=== PATIENT | female | born 1950 | race Caucasian/White ===

== ENCOUNTER 2018-10-21 11:52 | Outpatient (CLI) | payer MEDICARE, OTHER, SELFPAY ==
--- NOTE | 2018-10-21 11:58 | DI.RAD_ITS ---
SYMPTOM/DIAGNOSIS: COUGH, UPPER RESP INFECTION, J06.9 PA AND LATERAL CHEST: Comparison is made with 01/14/18. The heart is mildly enlarged, unchanged. There is a patchy infiltrate seen in the lingula. There are questionable right middle lobe densities. No effusions are seen. IMPRESSION: Question of lingular and right middle lobe infiltrates.
== END 2018-10-21 12:12 ==
PROVIDERS: Visit Provider Internal Medicine
DX: R05 Cough (principal); I51.7 Cardiomegaly; R91.8 Other nonspecific abnormal finding of lung field
CPT/HCPCS: 71046

== ENCOUNTER 2019-07-16 09:12 | Outpatient (CLI) | payer MEDICARE, SELFPAY ==
[2019-07-16 10:44] LABS: ALT 26 U/L (12-78); AST 11 U/L (15-37); Albumin 3.4 g/dL (3.4-5.0); Alkaline Phosphatase 113 U/L (46-116); Anion Gap 10.2 mmol/L (3-11); BUN 26 mg/dL (7-18); Bilirubin, Total 0.2 mg/dL (0.2-1.0); CO2 28.8 mmol/L (21.0-32.0); CREATININE 0.94 mg/dL (0.55-1.02); Calcium 8.7 mg/dL (8.5-10.1); Calculated LDL 154 mg/dL; Chloride 103 mmol/L (98-107); Cholesterol 215 mg/dL (50-200); Estimated GFR 59.22 (mL/min/1.73m2); Glucose 115 mg/dL (70-100); HDL Cholesterol 45 mg/dL (40-60); Potassium 4.5 mmol/L (3.5-5.1); Sodium 142 mmol/L (136-145); TSH (W/Ref FT4) 1.99 uIU/mL (0.36-3.74); Total Protein 6.9 g/dL (6.4-8.2); Triglyceride 84 mg/dL (30-150)
== END 2019-07-16 09:32 ==
DX: E66.01 Morbid (severe) obesity due to excess calories (principal); F41.9 Anxiety disorder, unspecified; I10 Essential (primary) hypertension; J45.909 Unspecified asthma, uncomplicated; M54.5 Low back pain; M79.605 Pain in left leg; R60.9 Edema, unspecified
CPT/HCPCS: 36415; 80053; 80061; 83721; 84443

== ENCOUNTER 2020-10-25 17:01 | Emergency (ER) | payer MEDICARE, BC, SELFPAY ==
[2020-10-25 17:07] VITALS: BP 185/87; PULSE 74; RESP 22; TEMP 37; O2SAT 94
--- NOTE | 2020-10-25 17:27 | ED.GENADUL_ITS ---
Discharge Plan Disposition Patient Disposition: HOME Condition: Fair Discharge Details Clinical Impression: Post-menopausal bleeding Primary Care Provider: Ailyn Will ED Provider: Delmy Robles Home Meds and New Rx's Prescriptions: No Action albuterol sulfate [ProAir HFA] 90 mcg/actuation HFA aerosol inhaler 2 puff Inhalation Q4H PRN PRN (Reason: shortness of breath or wheezing) Qty: 1 RF: 3 vitamin B complex [B Complex-Vitamin B12] tablet 1 tab PO DAILY RF: 0 Advair HFA 230-21 mcg/actuation HFA aerosol inhaler 2 puff Inhalation BID PRN (Reason: wheezing) Qty: 8 RF: 0 cephalexin 500 mg capsule 500 mg PO QID Qty: 20 RF: 0 cholecalciferol (vitamin D3) 1,000 UNIT tablet 4,000 iu PO daily prn RF: 0 omega-3 fatty acids-fish oil 1 EACH capsule 2 cap PO DAILY RF: 0 lorazepam 0.5 MG tablet 0.5 - 1 mg PO Q12H PRN Qty: 20 RF: 0 guaifenesin [Mucinex] 600 MG tablet extended release 12hr 1 tab-cap PO Q12H PRN RF: 0 furosemide 40 mg tablet 40 - 80 mg PO DAILY Qty: 180 RF: 3 aspirin 325 mg tablet 325 mg PO DAILY RF: 0 acetaminophen 500 mg tablet 500 - 1,000 mg PO bid prn RF: 0 Discharge Instructions Instructions: Abnormal (Dysfunctional) Uterine Bleeding (ED) Referrals: Alberto Muhammad MD [ NON-[facility] STAFF PHYSICIAN] - (call in am for follow up appointment) Medical Decision Making patient presents with new onset of vaginal bleeding, one day. no heavy bleeding, no dizziness, chest pain or shortness of breath. labs checked, discussed with DR Smith who will f/u with patient outpatient. Medical Records Medical records reviewed: Yes I reviewed the patient's medical records. Lab Data Lab results reviewed: Yes I reviewed the patient's lab results. Lab results narrative: Laboratory Tests Range/Units 10/25/20 10/25/20 10/25/20 17:45 17:45 17:45 WBC (4.4-10.8) 10^3/uL 11.15 H RBC (3.93-5.22) 10^6/uL 4.83 Hgb (11.2-15.7) g/dL 14.4 Hct (36.0-46.0) % 45.5 MCV (80-95) fL 94.2 MCH (27.0-33.0) pg 29.8 MCHC (32.0-36.0) % 31.6 L RDW (11.7-14.6) % 13.4 Plt Count (130-400) 10^3/uL 266 MPV (8.0-11.0) fL 10.6 Immature Gran % 0.3 Neutrophils % 66.4 Lymphocytes % 24.9 Monocytes % 5.7 Eosinophils % 2.5 Basophils % 0.2 Nucleated RBC % % 0 Absolute Neutrophils (1.2-6.7) 10^3/uL 7.40 H Absolute Lymphocytes (1.2-3.4) 10^3/uL 2.78 Absolute Monocytes (0.1-0.8) 10^3/uL 0.64 Absolute Eosinophils (0.0-0.7) 10^3/uL 0.28 Absolute Basophils (0.0-0.2) 10^3/uL 0.02 PT (9.3-11.0) sec 10.1 INR (0.9-1.1) 1.0 Sodium (136-145) mmol/L 141 Potassium (3.5-5.1) mmol/L 4.4 Chloride (98-107) mmol/L 105 Carbon Dioxide (21.0-32.0) mmol/L 29.5 Anion Gap (3-11) mmol/L 6.5 BUN (7-18) mg/dL 22 H Creatinine (0.55-1.02) mg/dL 0.84 Estimated GFR/1.73 m2 (mL/min/1.73m2) >= 60.00 Glucose (74-106) mg/dL 107 H Calcium (8.5-10.1) mg/dL 9.2 Total Bilirubin (0.2-1.0) mg/dL 0.2 AST (15-37) U/L 10 L ALT (14-59) U/L 20 Alkaline Phosphatase (46-116) U/L 115 Total Protein (6.4-8.2) g/dL 7.9 Albumin (3.4-5.0) g/dL 3.6 Urine Color (Yellow) Urine Clarity (Clear) Urine pH (5-8) Ur Specific [place] (1.005-1.025) Urine Protein (Negative) mg/dL Urine Ketones (Negative) mg/dL Urine Blood (Negative) Urine Nitrite (Negative) Urine Bilirubin (Negative) Urine Urobilinogen (Up TO 0.2) EU/dL Ur Leukocyte Esterase (Negative) Urine Glucose (Negative) mg/dL Range/Units 10/25/20 18:00 WBC (4.4-10.8) 10^3/uL RBC (3.93-5.22) 10^6/uL Hgb (11.2-15.7) g/dL Hct (36.0-46.0) % MCV (80-95) fL MCH (27.0-33.0) pg MCHC (32.0-36.0) % RDW (11.7-14.6) % Plt Count (130-400) 10^3/uL MPV (8.0-11.0) fL Immature Gran % Neutrophils % Lymphocytes % Monocytes % Eosinophils % Basophils % Nucleated RBC % % Absolute Neutrophils (1.2-6.7) 10^3/uL Absolute Lymphocytes (1.2-3.4) 10^3/uL Absolute Monocytes (0.1-0.8) 10^3/uL Absolute Eosinophils (0.0-0.7) 10^3/uL Absolute Basophils (0.0-0.2) 10^3/uL PT (9.3-11.0) sec INR (0.9-1.1) Sodium (136-145) mmol/L Potassium (3.5-5.1) mmol/L Chloride (98-107) mmol/L Carbon Dioxide (21.0-32.0) mmol/L Anion Gap (3-11) mmol/L BUN (7-18) mg/dL Creatinine (0.55-1.02) mg/dL Estimated GFR/1.73 m2 (mL/min/1.73m2) Glucose (74-106) mg/dL Calcium (8.5-10.1) mg/dL Total Bilirubin (0.2-1.0) mg/dL AST (15-37) U/L ALT (14-59) U/L Alkaline Phosphatase (46-116) U/L Total Protein (6.4-8.2) g/dL Albumin (3.4-5.0) g/dL Urine Color (Yellow) Yellow Urine Clarity (Clear) Clear Urine pH (5-8) 5.5 Ur Specific [place] (1.005-1.025) 1.025 Urine Protein (Negative) mg/dL Negative Urine Ketones (Negative) mg/dL Negative Urine Blood (Negative) Negative Urine Nitrite (Negative) Negative Urine Bilirubin (Negative) Negative Urine Urobilinogen (Up TO 0.2) EU/dL 0.2 Ur Leukocyte Esterase (Negative) Negative Urine Glucose (Negative) mg/dL Negative HPI General Date/Time Provider Initiated Documentation: 10/25/20 17:02 . Limitations to Documentation: no limitations . Information obtained by: patient . HPI Narrative: patient presents with a one day history of vaginal bleeding. She has no dizziness chest pain shortness of breath. She does report some symptoms of dysuria and frequency she states this is chronic for her. She also does have a history of urinary tract infection and denies fever or chills. She has not had any previous episodes of postmenopausal bleeding. She reports she follows up annually for physicals. She has no other symptoms no complaints of abdominal pain or nausea reports bowels and bladder have been functioning normally Related Data Home Medications Medication Instructions Recorded Confirmed cholecalciferol (vitamin D3) 4,000 iu PO daily prn 08/12/13 08/20/19 omega-3 fatty acids-fish oil 2 cap PO DAILY 08/12/13 08/20/19 lorazepam 0.5 - 1 mg PO Q12H PRN #20 tab-cap 02/21/17 08/20/19 guaifenesin [Mucinex] 1 tab-cap PO Q12H PRN tab-cap 01/21/18 08/20/19 albuterol sulfate 90 mcg/actuation 2 puff INHALATION Q4H PRN PRN #1 10/21/18 08/20/19 aerosol inhaler inh furosemide 40 mg tablet 40 - 80 mg PO DAILY #180 tab-cap 01/07/19 08/20/19 acetaminophen 500 mg tablet 500 - 1,000 mg PO bid prn tab-cap 06/09/19 08/20/19 aspirin 325 mg tablet 325 mg PO DAILY tab-cap 06/09/19 08/20/19 fluticasone propionate 230 2 puff INHALATION BID PRN #8 gm 06/09/19 08/20/19 mcg-salmeterol 21 mcg/actuation HFA inhaler vitamin B complex 1 tab PO DAILY 06/09/19 08/20/19 cephalexin 500 mg capsule 500 mg PO QID #20 cap 07/09/20 07/09/20 Previous Rx's Medication Instructions Recorded albuterol sulfate 90 mcg/actuation 2 puff INHALATION Q4H PRN PRN #1 10/21/18 aerosol inhaler inh furosemide 40 mg tablet 40 - 80 mg PO DAILY #180 tab-cap 01/07/19 fluticasone propionate 230 2 puff INHALATION BID PRN #8 gm 06/09/19 mcg-salmeterol 21 mcg/actuation HFA inhaler cephalexin 500 mg capsule 500 mg PO QID #20 cap 07/09/20 Allergies Allergy/AdvReac Type Severity Reaction Status Date / Time Tetanus Vaccines and Toxoid Allergy Unknown Verified 08/13/19 11:13 fluoxetine AdvReac Severe severe Verified 08/13/19 11:13 restlessness prednisone AdvReac Severe Psychosis Verified 08/13/19 11:13 sertraline AdvReac Severe severe Verified 08/13/19 11:13 restlessness metronidazole AdvReac Unknown intolerant Verified 08/13/19 11:13 General Stated Complaint: [employer]: 4 Review of Systems Constitutional Constitutional: Denies fever(s) and Denies poor appetite ENT Ears, Nose, Mouth, and Throat: Denies dysphagia and Denies dizziness Cardiovascular Cardiovascular: Denies chest pain and Denies dyspnea Respiratory Respiratory: Denies dyspnea Gastrointestinal Gastrointestinal: Denies constipation, Denies dysphagia and Denies nausea Genitourinary Genitourinary: Reports abnormal vaginal bleeding, Denies urinary frequency, Denies difficulty voiding, Denies vaginal discharge, Denies vaginal odor and Denies vaginal pruritus Musculoskeletal Musculoskeletal: Denies back pain Integumentary/Breasts Skin/Breast: Denies lesions and Denies rash Neurologic Neurologic: Denies dizziness [facility] Medical History (Updated 10/25/20 @ 17:42 by Delmy Robles NP) Wrist pain, left Surgical History Arthroplasty of knee (~1989) RIGHT Family History Mother Personal history of malignant neoplasm lung Father Diabetes Essential hypertension Sister No problems noted. Brother Essential hypertension Hyperlipidemia Brother Essential hypertension Diabetes Hyperlipidemia Brother No problems noted. Brother No problems noted. Grandfather Heart disease Grandfather Personal history of malignant neoplasm lung Grandmother Essential hypertension Heart disease Stroke Grandmother Heart disease Daughter No problems noted. Daughter No problems noted. Daughter No problems noted. Social History Smoking risk assessment performed?: No Alcohol Intake: current Alcohol Intake frequency: holidays/special occasions only Drug use: Never Do you feel safe in your relationship?: Yes Exam Const General: cooperative, comfortable, not diaphoretic and not frail appearing Nutritional Appearance: overweight Orientation: alert, awake and oriented x3 HENMT Head: normal to inspection, normocephalic and atraumatic Mouth: oral mucosae normal Resp Effort & Inspection: normal respiratory effort Auscultation: clear to auscultation bilaterally Cardio Rate: regular rate Rhythm: regular rhythm GI Inspection: normal to inspection Palpation: not firm and nontender Skin Lesions: lesions noted Rashes: rash noted Neuro General: patient alert, patient awake and patient oriented x3 Course Vital Signs Vital signs: Vital Signs Temperature 37 C 10/25/20 17:07 Pulse 74 10/25/20 17:07 Respiratory Rate 22 10/25/20 17:07 Blood Pressure 185/87 H 10/25/20 17:07 Pulse Oximetry 94 10/25/20 17:07 Temperature 37 C 10/25/20 17:07 Temperature Source Temporal Artery Scan 10/25/20 17:07 Pulse 74 10/25/20 17:07 Respiratory Rate 22 10/25/20 17:07 Respiratory Effort Non-Labored 10/25/20 17:13 Blood Pressure 185/87 H 10/25/20 17:07 Pulse Oximetry 94 10/25/20 17:07 Oxygen Delivery Method Room Air 10/25/20 17:07 Oxygen Flow Rate 0 10/25/20 17:07 Pain Level 0 10/25/20 17:07
--- NOTE | 2020-10-25 17:37 | NUR.NOTE ---
Referral faxed to [facility]. Dr Smith aware of patient.Nursing Note:
[2020-10-25 17:51] LABS: Abs Immature Grans 0.03 10^3/uL (0.0-0.06); Absolute Basophil Count 0.02 10^3/uL (0.0-0.2); Absolute Eosinophil Count 0.28 10^3/uL (0.0-0.7); Absolute Lymphocyte Count 2.78 10^3/uL (1.2-3.4); Absolute Monocyte Count 0.64 10^3/uL (0.1-0.8); Basophils % 0.2; Eosinophils % 2.5; HCT 45.5 % (36.0-46.0); HGB 14.4 g/dL (11.2-15.7); Immature Grans % 0.3; Lymphocytes % 24.9; MCH 29.8 pg (27.0-33.0); MCHC 31.6 % (32.0-36.0); MCV 94.2 fL (80-95); MPV 10.6 fL (8.0-11.0); Monocytes % 5.7; Neutrophils % 66.4; Nucleated RBC 0 %; Platelet Count 266 10^3/uL (130-400); RBC 4.83 10^6/uL (3.93-5.22); RDW 13.4 % (11.7-14.6); RDW-SD 46.7 fL; WBC 11.15 10^3/uL (4.4-10.8)
[2020-10-25 18:02] LABS: Prothrombin Time 10.1 sec (9.3-11.0)
[2020-10-25 18:04] LABS: Bilirubin Negative (Negative); Blood Negative (Negative); Clarity Clear (Clear); Glucose Negative (Negative); Ketones Negative (Negative); Leukocyte Esterase Negative (Negative); Nitrite Negative (Negative); Specific Gravity 1.025 (1.005-1.025); Urobilinogen 0.2 EU/dL (Up TO 0.2); pH 5.5 (5-8)
[2020-10-25 18:04] LABS: ALT 20 U/L (14-59); AST 10 U/L (15-37); Albumin 3.6 g/dL (3.4-5.0); Alkaline Phosphatase 115 U/L (46-116); Anion Gap 6.5 mmol/L (3-11); BUN 22 mg/dL (7-18); Bilirubin, Total 0.2 mg/dL (0.2-1.0); CO2 29.5 mmol/L (21.0-32.0); CREATININE 0.84 mg/dL (0.55-1.02); Calcium 9.2 mg/dL (8.5-10.1); Chloride 105 mmol/L (98-107); Glucose 107 mg/dL (74-106); Potassium 4.4 mmol/L (3.5-5.1); Sodium 141 mmol/L (136-145); Total Protein 7.9 g/dL (6.4-8.2)
== END 2020-10-25 18:30 | disposition home or self-care (01) ==
LOC: ER 18:13
PROVIDERS: Emergency Provider Nurse Practitioner Acute Care
DX: N95.0 Postmenopausal bleeding (principal); Z87.440 Personal history of urinary (tract) infections
CPT/HCPCS: 51701; 80053; 99283; 81003; 85025; 85610

== ENCOUNTER 2020-11-02 12:21 | Outpatient (REF) | payer MEDICARE, BC, SELFPAY ==
--- NOTE | 2020-11-02 12:05 | ENDOMET_PTH ---
PATIENT: Zelda Brooke LOC: [facility] U#:[id number] AGE/SX: 70/F ROOM: RE11/02/[address]: Shiloh Ruiz : 1950 BED: DIS: 11/02/2020 SPEC #: [id number] RECD: 11/02/20 13:02 STATUS: VIET REQ #: [id number] PHIL: 11/02/20 12:[address]: Shiloh Ruiz DEPT: Surgical Specimen RECD BY: Charline Sahu ENTERED: 11/02/20 13:02 SP TYPE: Endomet OTHR DR: Ailyn Will APRN Tissues: 1 - ENDOMETRIUM BX/BALBINAETTE Procedures: GROSS AND MICRO LEVEL 4 Comments: [id number]
== END 2020-11-02 12:41 ==
LOC: LBN 12:21
PROVIDERS: Visit Provider Obstetrics & Gynecology Gynecology
DX: C54.1 Malignant neoplasm of endometrium (principal); N95.0 Postmenopausal bleeding
CPT/HCPCS: 88305

== ENCOUNTER 2021-03-14 18:03 | Outpatient (REF) | payer MEDICARE, BC, SELFPAY ==
[2021-03-16 12:52] LABS: COVID-19 RT-PCR UVMMC Result Negative (Negative)
== END 2021-03-14 18:04 | disposition home or self-care (01) ==
LOC: LBN 18:03
PROVIDERS: Visit Provider Family Medicine
DX: Z20.822 Contact with and (suspected) exposure to COVID-19 (principal); R06.02 Shortness of breath
CPT/HCPCS: U0003; U0005

== ENCOUNTER 2021-10-05 00:52 | Outpatient (CLI) | payer MEDICARE, BC, SELFPAY ==
--- NOTE | 2021-10-05 | DI.MAMMO_ITS ---
Exam(s) MAMMO SCREENING EXAM: MAMMO SCREENING CLINICAL HISTORY: SCREENING, [facility]VENT[facility] CARE,Z00.00. TECHNIQUE: Bilateral full field digital CC and MLO mammographic images were obtained with 3D tomosyn thesis and utilizing computer aided detection (CAD). COMPARISON: Prior mammograms dating back to 2013, the most recent being February 2017. FINDINGS: There are no new significant radiograph findings in the right breast In the left breast there is an asymmetric density-possible nodule located 10 cm in from the nipple, l ateral of center on the CC view and measuring approximately 6 x 5 millimeters. There are no malignant-appearing microcalcification groups is region or elsewhere in either breast. There is no significant architectural distortion nor skin thickening-retraction. IMPRESSION: 1. No radiographic evidence of malignancy in right breast. 2. Asymmetric density-possible nodule left breast. Spot compression CC view and possible ultrasound recommended. BI-RADS Category 0 - Assessment Incomplete: Need additional imaging evaluation Breast Density - Category B - Scattered areas of fibroglandular density Breast density Category C or D implies that the patient has dense breast tissue. Dense breast tissue can make it harder to find cancer on a mammogram. Dense breast tissue is also associated with an incr eased risk of breast cancer. This information about the result of the mammogram report was provided to the patient to raise their awareness. Use this report when you speak with the patient about their risks for breast cancer, which includes their family history. At that time, you may recommend additional screening tests (Ultrasoun d or MRI) as these tests may add significant information. A negative radiographic report should not delay biopsy if a dominant or clinically suspicious mass is present. Up to ten percent of cancers are not identified on mammography. A negative report may reinforce clinical impression. Adenosis and dense breasts may obscure an underlying neoplasm. False positive reports average 6 to 10%. Patient will receive a letter notifying them of these results.
== END 2021-10-05 01:12 ==
PROVIDERS: Visit Provider Family Medicine
DX: Z12.31 Encounter for screening mammogram for malignant neoplasm of breast (principal); R92.8 Other abnormal and inconclusive findings on diagnostic imaging of breast
CPT/HCPCS: 77063; 77067

== ENCOUNTER 2021-10-26 00:30 | Outpatient (CLI) | payer MEDICARE, BC, SELFPAY ==
--- NOTE | 2021-10-26 13:00 | DI.MAMMO_ITS ---
Exam(s) MG MAMMO SCREEN CALL BACK UNI US BREAST LT COMPLETE EXAM: MG MAMMO SCREEN CALL BACK UNI and U/S breast LT limited CLINICAL HISTORY: ASYMMETRIC DENSITY LT BREAST. TECHNIQUE: Craniocaudal and mediolateral oblique Full Field Digital Mammography views of the left br east with Computer Aided Diagnosis followed by Tomosynthesis and left breast ultrasound. COMPARISON: Comparison is made with prior examinations. FINDINGS: Mammography/Tomosynthesis: Masses/Architectural Distortion: The area of concern in the outer left breast does not persist on the additional views. Microcalcifictions: No suspicious pleomorphic-type are seen. Skin Thickening/Nipple Retraction: None. Left breast US: The upper outer and lower outer quadrants of the left breast were evaluated sonograph ically. Echotexture: Normal appearance of the glandular tissue. Shadowing: No suspicious foci. Cyst: None. Solid lesions: None seen. Ductal dilation: None. IMPRESSION: 1. No evidence of malignancy is noted. 2. Unless there is more urgent need, follow-up screening mammography is recommended, as per [employer] guidelines. 3. The findings were discussed with the patient on the date of the examination. BI-RADS Category 1 - Negative Breast Density - Category B - Scattered areas of fibroglandular density Breast density Category C or D implies that the patient has dense breast tissue. Dense breast tissue can make it harder to find cancer on a mammogram. Dense breast tissue is also associated with an incr eased risk of breast cancer. This information about the result of the mammogram report was provided to the patient to raise their awareness. Use this report when you speak with the patient about their risks for breast cancer, which includes their family history. At that time, you may recommend additional screening tests (Ultrasoun d or MRI) as these tests may add significant information. A negative radiographic report should not delay biopsy if a dominant or clinically suspicious mass is present. Up to ten percent of cancers are not identified on mammography. A negative report may reinforce clinical impression. Adenosis and dense breasts may obscure an underlying neoplasm. False positive reports average 6 to 10%. Patient will receive a letter notifying them of these results.
== END 2021-10-26 00:50 ==
PROVIDERS: Visit Provider Family Medicine
DX: R92.8 Other abnormal and inconclusive findings on diagnostic imaging of breast (principal)
CPT/HCPCS: 76642; 77063; 77067

== ENCOUNTER 2022-03-09 01:35 | Outpatient (CLI) | payer MEDICARE, BC, SELFPAY ==
--- NOTE | 2022-03-09 13:00 | DI.DEXA_ITS ---
Exam(s) XR DEXA BONE DENSITY W/WO BRITANY EXAM: XR DEXA BONE DENSITY W/WO BRITANY CLINICAL HISTORY: POSTMENOPAUSAL, Z78.0 TECHNIQUE: COMPARISON: No exams were available for comparison FINDINGS: DEXA scan was performed according to the usual protocol. Please see the accompanying data sheet. Fi ndings for left hip scanning are T-score 0.7. Findings for lumbar spine scanning are T-score 2.7. Findings for left forearm scanning are T-score -0.1. IMPRESSION: Findings are consistent with normal bone density according to the WHO criteria. The lateral vertebra l scanogram shows no evidence of a vertebral compression fracture. RADIATION DOSE DELIVERED: Total DLP
== END 2022-03-09 01:55 ==
PROVIDERS: Visit Provider Family Medicine
DX: Z78.0 Asymptomatic menopausal state (principal)
CPT/HCPCS: 77080

== ENCOUNTER 2022-05-12 14:11 | Outpatient (REF) | payer MEDICARE, BC, SELFPAY ==
--- NOTE | 2022-05-12 13:18 | SKI_PTH ---
PATIENT: Zelda Brooke LOC: [facility] U#:[id number] AGE/SX: 71/F ROOM: RE05/12/[address]: Keyon Lopez DO : 1950 BED: DIS: 05/12/2022 SPEC #: [id number] RECD: 05/12/22 15:20 STATUS: VIET REQ #: [id number] PHIL: 05/12/22 13:[address]: Keyon Lopez DEPT: Surgical Specimen RECD BY: Charline Sahu ENTERED: 05/12/22 15:20 SP TYPE: SKI OTHR DR: Minda Johnson Tissues: 1 - SKIN BIOPSY(SHAVE/PUNCH) Procedures: SKIN LEVEL 4 Comments: [id number]
== END 2022-05-12 14:12 | disposition home or self-care (01) ==
LOC: LBN 14:11
PROVIDERS: PCP Family Medicine; Visit Provider Otolaryngology Otolaryngology/Facial Plastic Surgery
DX: L82.1 Other seborrheic keratosis (principal)
CPT/HCPCS: 88305

== ENCOUNTER 2022-08-23 14:59 | Outpatient (REF) | payer MEDICARE, BC, SELFPAY ==
[2022-08-23 20:45] LABS: Hemoglobin A1C 5.8 % (<5.7)
[2022-08-25 09:25] LABS: Hepatitis C Ab w Rflx HCV PCR Negative (Negative)
== END 2022-08-23 15:00 | disposition home or self-care (01) ==
LOC: NCHCN 14:59
PROVIDERS: PCP Family Medicine; Visit Provider Family Medicine
DX: R73.9 Hyperglycemia, unspecified (principal); Z11.59 Encounter for screening for other viral diseases
CPT/HCPCS: 86803; 83036

== ENCOUNTER 2022-12-14 11:20 | Outpatient (REF) | payer MEDICARE, BC, SELFPAY | END 2022-12-14 11:21 | disposition home or self-care (01) | LOC: NCHCN 11:20 | PROVIDERS: PCP Family Medicine; Visit Provider Family Medicine | DX: R30.0 Dysuria (principal); N39.0 Urinary tract infection, site not specified | CPT/HCPCS: 87077; 87086; 87186 ==

== ENCOUNTER 2023-02-23 13:57 | Outpatient (REF) | payer MEDICARE, BC, SELFPAY ==
[2023-02-23 18:27] LABS: HCT 43.5 % (36.0-46.0); HGB 14.2 g/dL (11.2-15.7); MCH 30.5 pg (27.0-33.0); MCHC 32.6 % (32.0-36.0); MCV 94 fL (80-95); MPV 10.9 fL (8.0-11.0); Platelet Count 205 10^3/uL (130-400); RBC 4.65 10^6/uL (3.93-5.22); RDW 13.5 % (11.7-14.6); RDW-SD 46.5 fL
[2023-02-23 18:34] LABS: Prothrombin Time 10.1 sec (9.3-11.0)
[2023-02-23 19:12] LABS: Anion Gap 6.9 mmol/L (3-11); BUN 20 mg/dL (7-18); CO2 30.1 mmol/L (21.0-32.0); CREATININE 0.8 mg/dL (0.55-1.02); Calcium 9.3 mg/dL (8.5-10.1); Chloride 104 mmol/L (98-107); Estimated GFR 78.24 (mL/min/1.73m2); Ferritin 56 ng/mL (8-252); Glucose 106 mg/dL (74-106); Potassium 4.4 mmol/L (3.5-5.1); Sodium 141 mmol/L (136-145)
== END 2023-02-23 13:58 | disposition home or self-care (01) ==
LOC: NCHCN 13:57
PROVIDERS: PCP Family Medicine; Visit Provider Family Medicine
DX: K62.5 Hemorrhage of anus and rectum (principal); Z79.899 Other long term (current) drug therapy
CPT/HCPCS: 80048; 85027; 82728; 85610

== ENCOUNTER 2023-09-11 02:29 | Outpatient (CLI) | payer MEDICARE, BC, SELFPAY ==
[2023-09-11 11:28] LABS: HCT 44.6 % (36.0-46.0); HGB 14.4 g/dL (11.2-15.7); MCH 30.1 pg (27.0-33.0); MCHC 32.3 % (32.0-36.0); MCV 93 fL (80-95); Platelet Count 209 10^3/uL (130-400); RBC 4.78 10^6/uL (3.93-5.22); RDW 13.2 % (11.7-14.6); RDW-SD 45.3 fL; WBC 6.43 10^3/uL (4.4-10.8)
[2023-09-11 12:02] LABS: ALT 20 U/L (14-59); AST 14 U/L (15-37); Albumin 3.3 g/dL (3.4-5.0); Alkaline Phosphatase 117 U/L (46-116); Anion Gap 5.7 mmol/L (3-11); BUN 13 mg/dL (7-18); Bilirubin, Total 0.3 mg/dL (0.2-1.0); CO2 29.3 mmol/L (21.0-32.0); CREATININE 0.9 mg/dL (0.55-1.02); Calcium 9.2 mg/dL (8.5-10.1); Calculated LDL 132 mg/dL (<100); Chloride 105 mmol/L (98-107); Cholesterol 200 mg/dL (<200); Glucose 110 mg/dL (74-106); HDL Cholesterol 51 mg/dL (40-60); Sodium 140 mmol/L (136-145); Total Protein 7.4 g/dL (6.4-8.2); Triglyceride 87 mg/dL (<150)
[2023-09-11 12:33] LABS: NT-proBNP 127 pg/mL (<300)
== END 2023-09-11 02:30 | disposition home or self-care (01) ==
LOC: LBO 02:29
PROVIDERS: PCP Family Medicine; Visit Provider Family Medicine
DX: E78.5 Hyperlipidemia, unspecified (principal); R73.03 Prediabetes; I50.9 Heart failure, unspecified; R60.0 Localized edema
CPT/HCPCS: 36415; 80053; 80061; 85027; 83036; 83880

== ENCOUNTER → 2024-03-28 03:20 | Outpatient (CLI) | payer MEDICARE, BC, SELFPAY ==
--- NOTE | 2024-03-28 | DI.MAMMO_ITS ---
Exam(s) MG MAMMO SCREENING 60 MIN DUR EXAM: MG MAMMO SCREENING 60 MIN DUR CLINICAL HISTORY: SCREENING MAMMO FOR BREAST CANCER Z12.31. TECHNIQUE: Bilateral full field digital CC and MLO mammographic images were obtained with 3D tomosyn thesis and utilizing computer aided detection (CAD). COMPARISON: Prior mammograms were reviewed. Prior ultrasound October 2021 was also reviewed. FINDINGS: There has been no significant change in the appearance and distribution of the fibroglandular tissue. There are no CAD designations. Previously described asymmetric density in left breast is no longer seen. There are no new spiculated masses nor malignant appearing microcalcification groups. There is no significant architectural distortion nor skin thickening-retraction. IMPRESSION: No radiographic evidence of malignancy. BI-RADS Category 1 - Negative Breast Density - Category B - Scattered areas of fibroglandular density Breast density Category C or D implies that the patient has dense breast tissue. Dense breast tissue can make it harder to find cancer on a mammogram. Dense breast tissue is also associated with an incr eased risk of breast cancer. This information about the result of the mammogram report was provided to the patient to raise their awareness. Use this report when you speak with the patient about their risks for breast cancer, which includes their family history. At that time, you may recommend additional screening tests (Ultrasoun d or MRI) as these tests may add significant information. A negative radiographic report should not delay biopsy if a dominant or clinically suspicious mass is present. Up to ten percent of cancers are not identified on mammography. A negative report may reinforce clinical impression. Adenosis and dense breasts may obscure an underlying neoplasm. False positive reports average 6 to 10%. Patient will receive a letter notifying them of these results.
== END ==
PROVIDERS: PCP Family Medicine; Visit Provider Family Medicine
DX: Z12.31 Encounter for screening mammogram for malignant neoplasm of breast (principal)
CPT/HCPCS: 77063; 77067